=== PATIENT | male | born 1980 | race Caucasian/White ===

== ENCOUNTER 2022-08-25 11:26 | Emergency (ER) | payer BC ==
[2022-08-25] MEDS ORDERED: Orphenadrine Citrate 60 MG/2 ML VIAL IM SCH (12:00)
[2022-08-25] MEDS ORDERED: Ketorolac Tromethamine 30 MG/ML VIAL ONE (12:02)
== END 2022-08-25 13:03 | disposition home or self-care (01) ==
LOC: CSHERS 11:26
DX: M54.12 Radiculopathy, cervical region (principal); M62.838 Other muscle spasm
CPT/HCPCS: 93005; 96372; J1885; J2360